=== PATIENT | female | born 1990 | race Caucasian/White ===

== ENCOUNTER 2022-02-06 09:28 | Emergency (ER) | payer BC ==
[2022-02-06] MEDS ORDERED: Sodium Chloride 0.9% 10 ML Syringe FLUSH PRN (10:52)
[2022-02-06] MEDS ORDERED: Ondansetron 4 MG Tab.DIS PO ONE (10:53)
[2022-02-06] MEDS ORDERED: Ketorolac 30 MG/ML SDV IVPUSH ONE (10:53)
[2022-02-06] MEDS ORDERED: diphenhydrAMINE 50 MG/ML SDV IVPUSH ONE ×2 (10:54)
[2022-02-06] MEDS ORDERED: Ketorolac 30 MG/ML SDV ONE (10:59)
[2022-02-06] MEDS ORDERED: Ondansetron 4 MG/2 ML SDV ONE (10:59)
[2022-02-06] MEDS ORDERED: Sodium Chloride 0.9% 1,000 ML IV SCH (11:00)
[2022-02-06] MEDS ORDERED: diphenhydrAMINE 50 MG/ML SDV ONE (11:01)
== END 2022-02-06 12:05 | disposition home or self-care (01) ==
LOC: LB.ED 09:28
DX: J11.1 Influenza due to unidentified influenza virus with other respiratory manifestations (principal); Z20.822 Contact with and (suspected) exposure to COVID-19
CPT/HCPCS: 87430; 87804; 87804-59; 96361; 96374; 96375; 99283-25; J1200; J1885; J3490; J7030; Q0162; U0002

== ENCOUNTER 2022-07-05 07:26 | Emergency (ER) | payer BC ==
[2022-07-05] MEDS: Ketorolac 60 MG/2 ML SDV ONE (08:01)
[2022-07-05] MEDS: Ketorolac 60 MG/2 ML SDV IM ONE (08:06)
[2022-07-05 08:48] LABS: TROPONIN I HIGH SENSITIVITY 5.1 pg/ml (<=60.4)
== END 2022-07-05 09:11 | disposition home or self-care (01) ==
LOC: LB.ED 07:26
DX: M79.621 Pain in right upper arm (principal)
CPT/HCPCS: 36415; 72050; 80053; 84484; 85025; 85651; 86140; 93005; 96372; 99284; J1885; 99283